=== PATIENT | female | born 1980 | race Caucasian/White ===

== ENCOUNTER → 2016-10-31 | Outpatient (CLI) | payer MEDICAID | LOC: FIMAGING 08:15 | PROVIDERS: ATTEND Surgery | DX: K44.9 Diaphragmatic hernia without obstruction or gangrene (principal); K21.9 Gastro-esophageal reflux disease without esophagitis; Z98.890 Other specified postprocedural states ==

== ENCOUNTER → 2016-12-29 | Outpatient (CLI) | payer MEDICAID | LOC: FIMAGING 08:08 | PROVIDERS: ATTEND Family Medicine | DX: R10.13 Epigastric pain (principal) ==

== ENCOUNTER 2017-01-16 18:33 | Emergency (ER) | payer MEDICAID ==
[2017-01-16 18:37] VITALS: TEMP 98.2; O2SAT 97
[2017-01-16] MEDS ORDERED: ONDANSETRON 4 MG/2 ML VIAL ONE (18:57)
[2017-01-16] MEDS ORDERED: ONDANSETRON 4 MG/2 ML VIAL IVP ONE (19:04)
[2017-01-16] MEDS ORDERED: NS 1,000 ML IV ONE ×2 (19:04→19:08)
[2017-01-16] MEDS ORDERED: ONDANSETRON 4MG PREPACK#2 BTL TAKEHOME ONE (19:11)
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
[2017-01-16 19:19] LABS: % IMMATURE GRANULYOCYTES 0.4 % (0.0-1.1); ABSOLUTE IMMATURE GRANULOCYTES 0.04 10^3/uL (0.00-0.10); ADD DIFF? NO; ADD MORPH? NO; ADD SCAN? NO; ATYPICAL LYMPHOCYTE FLAG 0 (0-99); FRAGMENT RBC FLAG 0 (0-99); HEMATOCRIT 41.5 % (38.0-47.0); HEMOGLOBIN 12.9 g/dL (12.6-16.3); LEFT SHIFT FLG 0 (0-99); LIPEMIA HEMOLYSIS FLAG 80 (0-99); MEAN CELL HEMOGLOBIN 25.7 pg (27.9-34.1); MEAN CELL HEMOGLOBIN CONCENTR. 31.1 g/dL (32.4-36.7); MEAN CELL VOLUME 82.7 fL (81.5-99.8); MEAN PLATELET VOLUME 9.3 fL (8.7-11.7); PLATELET CLUMPS FLAG 0 (0-99); PLATELET COUNT 353 10^3/uL (150-400); RED BLOOD CELL COUNT 5.02 10^6/uL (4.18-5.33); RED CELL DISTRIBUTION WIDTH 13.6 % (11.5-15.2)
[2017-01-16 19:26] LABS: ALANINE AMINOTRANSFERASE 44 IU/L (9-52); ALBUMIN 5.2 g/dL (3.5-5.0); ALKALINE PHOSPHATASE 108 IU/L (38-126); ANION GAP 16 mEq/L (8-16); ASPARTATE AMINOTRANSFERASE 32 IU/L (14-46); BILIRUBIN,TOTAL 0.7 mg/dL (0.1-1.4); BILIRUBIN-CONJUGATED 0.4 mg/dL (0.0-0.5); BILIRUBIN-UNCONJUGATED 0.3 mg/dL (0.0-1.1); CALCIUM 9.9 mg/dL (8.5-10.4); CARBON DIOXIDE 19 mEq/l (22-31); CHLORIDE 101 mEq/L (97-110); CREATININE 0.8 mg/dL (0.6-1.0); GLOMERULAR FILTRATION RATE > 60; GLUCOSE 104 mg/dL (70-100); POTASSIUM 4.1 mEq/L (3.5-5.2); SODIUM 136 mEq/L (134-144); TOTAL PROTEIN 9.1 g/dL (6.3-8.2)
[2017-01-16 20:53] VITALS: BP 111/68; PULSE 72; RESP 20
== END 2017-01-16 20:53 | disposition home or self-care (01) ==
DX: R11.2 Nausea with vomiting, unspecified (principal); E86.0 Dehydration; Z90.49 Acquired absence of other specified parts of digestive tract
CPT/HCPCS: 96374; J2405

== ENCOUNTER 2017-01-31 17:32 | Emergency (ER) | payer MEDICAID ==
[2017-01-31 17:41] VITALS: TEMP 97.7
[2017-01-31] MEDS ORDERED: PROMETHAZINE HCL 25 MG/ML INJ IVP ONE (18:02)
[2017-01-31] MEDS ORDERED: NS 1,000 ML IV ONE (18:02)
--- NOTE | 2017-01-31 18:02 | EDPHY ---
H & P Stated Complaint: N/V/D x 2 weeks, bilat lower abd pain, zofran not working Time Seen by Provider: 01/31/17 17:55 HPI/ROS: CHIEF COMPLAINT: Nausea, vomiting and diarrhea HISTORY OF PRESENT ILLNESS: The patient presents the ED with an acute exacerbation of nausea, vomiting diarrhea. The patient has a history of chronic abdominal pain since surgery for a hiatal hernia 2 years ago. She is under the care of a outbound supervisor. She has had extensive workup under their care. She reports an uneventful upper endoscopy, colonoscopy and small- bowel follow-through within the past year. The patient was seen in the emergency department several weeks ago with vomiting and dehydration. She was prescribed Zofran at that point time. She has been using Zofran sporadically at home but continues to have nausea and vomiting. She did developed 4 episodes of nonbloody diarrhea today. She denies recent antibiotic use. She denies travel outside the [place]. She complains of moderate associated epigastric pain. REVIEW OF SYSTEMS: A comprehensive 10 point review of systems is otherwise negative aside from elements mentioned in the history of present illness. Source: Patient Exam Limitations: No limitations - Personal History LMP (Females 10-55): 1-7 Days Ago Current Tetanus/Diphtheria Vaccine: Unsure Current Tetanus Diphtheria and Acellular Pertussis (TDAP): Unsure - Medical/Surgical History Hx Asthma: No Hx Chronic Respiratory Disease: No Hx Diabetes: No Hx Cardiac Disease: No Hx Renal Disease: No Hx Cirrhosis: No Hx Alcoholism: No Hx HIV/AIDS: No Hx Splenectomy or Spleen Trauma: No Other PMH: cushings,reflux, sciatica, lower back tumor resection, polycycstic ovarian syndrome - Social History Smoking Status: Never smoked - Physical Exam Exam: General Appearance: Alert, no distress Eyes: Pupils equal and round no pallor or injection ENT, Mouth: Mucous membranes moist Respiratory: There are no retractions, lungs are clear to auscultation Cardiovascular: Slight tachycardia Gastrointestinal: Minimal epigastric tenderness Neurological: A&O, normal motor function, normal sensory exam, normal cranial nerves Skin: Warm and dry, no rashes Musculoskeletal: Neck is supple nontender Extremities: symmetrical, full range of motion Psychiatric: Patient is oriented X 3, there is no agitation Constitutional: Initial Vital Signs Temperature (C) 36.5 C 01/31/17 17:37 Heart Rate 89 01/31/17 17:37 Respiratory Rate 16 01/31/17 17:37 Blood Pressure 118/83 H 01/31/17 17:37 O2 Sat (%) 98 01/31/17 17:37 O2 Delivery Mode Room Air Allergies/Adverse Reactions: No Known Allergies Allergy (Verified 01/16/17 18:34) Home Medications: Medication Instructions Recorded Diazepam [Valium 5 MG (*)] 5 mg PO 01/16/17 Naltrexone HCl/Bupropion HCl 1 each PO 01/16/17 [Contrave ER 8-90 mg Tablet] Pantoprazole Sodium [Protonix 40mg 40 mg PO 01/16/17 (*)] Venlafaxine HCl [Venlafaxine 25MG 25 mg PO 01/16/17 (*)] Vilazodone HCl [Viibryd] 10 mg PO 01/16/17 metFORMIN HCL [Glucophage 500 mg 500 mg PO 01/16/17 (*)] Medical Decision Making ED Course/Re-evaluation: The patient had an IV established. She received 2 L of normal saline. She received 12.5 mg of IV Phenergan. I reviewed the patient's past medical records including her ED visit from 2 weeks ago. The patient's laboratory studies are unremarkable. She received IV fluid rehydration. She received serial examinations in the ED by myself over a 2 hour period. The patient was reexamined at 8:00 p.m. and is feeling much better. No ongoing vomiting. At this point time I do feel the patient can be discharged home. She should follow up as scheduled with Dr. Ortiz and her outbound supervisor. Differential Diagnosis: Differential diagnosis considered includes dehydration, pancreatitis, cholecystitis, hepatitis, gastroenteritis - Data Points Laboratory Results: Laboratory Results 01/31/17 17:58 01/31/17 17:58 01/31/17 01/31/17 01/31/17 18:02 17:58 17:58 WBC RBC Hgb Hct MCV MCH MCHC RDW Plt Count MPV Neut % (Auto) Lymph % (Auto) [place] % (Auto) Eos % (Auto) Baso % (Auto) Nucleat RBC Rel Count Absolute Neuts (auto) Absolute Lymphs (auto) Absolute Monos (auto) Absolute Eos (auto) Absolute Basos (auto) Absolute Nucleated RBC Immature Gran % Immature Gran # Sodium 141 mEq/L mEq/L (134-144) Potassium 4.9 mEq/L mEq/L (3.5-5.2) Chloride 105 mEq/L mEq/L (97-110) Carbon Dioxide 20 mEq/l L mEq/l (22-31) Anion Gap 16 mEq/L mEq/L (8-16) BUN 10 mg/dL mg/dL (7-23) Creatinine 0.9 mg/dL mg/dL (0.6-1.0) Estimated GFR > 60 Glucose 80 mg/dL mg/dL (70-100) Calcium 10.1 mg/dL mg/dL (8.5-10.4) Total Bilirubin 1.5 mg/dL H mg/dL (0.1-1.4) Conjugated Bilirubin 0.6 mg/dL H mg/dL (0.0-0.5) Unconjugated Bilirubin 0.9 mg/dL mg/dL (0.0-1.1) AST 49 IU/L H IU/L (14-46) ALT 33 IU/L IU/L (9-52) Alkaline Phosphatase 93 IU/L IU/L (38-126) Total Protein 9.1 g/dL H g/dL (6.3-8.2) Albumin 5.0 g/dL g/dL (3.5-5.0) Lipase 148.0 IU/L IU/L (23-300) Beta HCG, Qual NEGATIVE Specimen Hemolysis 134 Urine Color Cancelled Urine Appearance Cancelled Urine pH Cancelled Ur Specific [place] Cancelled Urine Protein Cancelled Urine Ketones Cancelled Urine Blood Cancelled Urine Nitrate Cancelled Urine Bilirubin Cancelled Urine Urobilinogen Cancelled Ur Leukocyte Esterase Cancelled Urine Glucose Cancelled 01/31/17 17:58 WBC 9.10 10^3/uL 10^3/uL (3.80-9.50) RBC 4.86 10^6/uL 10^6/uL (4.18-5.33) Hgb 12.4 g/dL L g/dL (12.6-16.3) Hct 40.0 % % (38.0-47.0) MCV 82.3 fL fL (81.5-99.8) MCH 25.5 pg L pg (27.9-34.1) MCHC 31.0 g/dL L g/dL (32.4-36.7) RDW 14.4 % % (11.5-15.2) Plt Count 367 10^3/uL 10^3/uL (150-400) MPV 9.2 fL fL (8.7-11.7) Neut % (Auto) 73.1 % % (39.3-74.2) Lymph % (Auto) 17.0 % % (15.0-45.0) [place] % (Auto) 7.3 % % (4.5-13.0) Eos % (Auto) 1.6 % % (0.6-7.6) Baso % (Auto) 0.7 % % (0.3-1.7) Nucleat RBC Rel Count 0.0 % % (0.0-0.2) Absolute Neuts (auto) 6.65 10^3/uL H 10^3/uL (1.70-6.50) Absolute Lymphs (auto) 1.55 10^3/uL 10^3/uL (1.00-3.00) Absolute Monos (auto) 0.66 10^3/uL 10^3/uL (0.30-0.80) Absolute Eos (auto) 0.15 10^3/uL 10^3/uL (0.03-0.40) Absolute Basos (auto) 0.06 10^3/uL 10^3/uL (0.02-0.10) Absolute Nucleated RBC 0.00 10^3/uL 10^3/uL (0-0.01) Immature Gran % 0.3 % % (0.0-1.1) Immature Gran # 0.03 10^3/uL 10^3/uL (0.00-0.10) Sodium Potassium Chloride Carbon Dioxide Anion Gap BUN Creatinine Estimated GFR Glucose Calcium Total Bilirubin Conjugated Bilirubin Unconjugated Bilirubin AST ALT Alkaline Phosphatase Total Protein Albumin Lipase Beta HCG, Qual Specimen Hemolysis Urine Color Urine Appearance Urine pH Ur Specific [place] Urine Protein Urine Ketones Urine Blood Urine Nitrate Urine Bilirubin Urine Urobilinogen Ur Leukocyte Esterase Urine Glucose Medications Given: Discontinued Medications Sodium Chloride (Ns) 1,000 mls @ 0 mls/hr IV ONCE ONE; Wide Open PRN Reason: Protocol Stop: 01/31/17 18:03 Last Admin: 01/31/17 18:41 Dose: 1,000 mls Promethazine HCl (Phenergan) 12.5 mg IVP EDNOW ONE Stop: 01/31/17 18:03 Last Admin: 01/31/17 18:42 Dose: 12.5 mg Departure - Departure Disposition: Home, Routine, Self-Care Clinical Impression: Acute vomiting, Dehydration Condition: Good Instructions: Acute Nausea and Vomiting (ED) Additional Instructions: 1. Please follow up as scheduled with your primary care provider. 2. Return to the ED for severe pain, fever or other concerns. Referrals: Marquita Dallas MD [Primary Care Provider] - As per Instructions
[2017-01-31 18:06] LABS: % IMMATURE GRANULYOCYTES 0.3 % (0.0-1.1); ABSOLUTE IMMATURE GRANULOCYTES 0.03 10^3/uL (0.00-0.10); ADD DIFF? NO; ADD MORPH? NO; ADD SCAN? NO; ATYPICAL LYMPHOCYTE FLAG 10 (0-99); FRAGMENT RBC FLAG 0 (0-99); HEMOGLOBIN 12.4 g/dL (12.6-16.3); LEFT SHIFT FLG 0 (0-99); LIPEMIA HEMOLYSIS FLAG 80 (0-99); MEAN CELL HEMOGLOBIN 25.5 pg (27.9-34.1); MEAN CELL VOLUME 82.3 fL (81.5-99.8); MEAN PLATELET VOLUME 9.2 fL (8.7-11.7); PLATELET CLUMPS FLAG 10 (0-99); PLATELET COUNT 367 10^3/uL (150-400); RED BLOOD CELL COUNT 4.86 10^6/uL (4.18-5.33); RED CELL DISTRIBUTION WIDTH 14.4 % (11.5-15.2)
[2017-01-31 18:21] LABS: ALANINE AMINOTRANSFERASE 33 IU/L (9-52); ALKALINE PHOSPHATASE 93 IU/L (38-126); ANION GAP 16 mEq/L (8-16); ASPARTATE AMINOTRANSFERASE 49 IU/L (14-46); BILIRUBIN,TOTAL 1.5 mg/dL (0.1-1.4); BILIRUBIN-CONJUGATED 0.6 mg/dL (0.0-0.5); BILIRUBIN-UNCONJUGATED 0.9 mg/dL (0.0-1.1); CALCIUM 10.1 mg/dL (8.5-10.4); CARBON DIOXIDE 20 mEq/l (22-31); CHLORIDE 105 mEq/L (97-110); CREATININE 0.9 mg/dL (0.6-1.0); GLOMERULAR FILTRATION RATE > 60; GLUCOSE 80 mg/dL (70-100); POTASSIUM 4.9 mEq/L (3.5-5.2); SODIUM 141 mEq/L (134-144); SPECIMEN HEMOLYSIS 134; TOTAL PROTEIN 9.1 g/dL (6.3-8.2)
[2017-01-31 20:03] VITALS: BP 114/72; PULSE 93; RESP 18; O2SAT 94
== END 2017-01-31 20:22 | disposition home or self-care (01) ==
DX: R11.10 Vomiting, unspecified (principal); E86.0 Dehydration
CPT/HCPCS: 96374; J2550

== ENCOUNTER → 2017-02-18 | Outpatient (CLI) | payer MEDICAID ==
[~2017-02-18] MED LIST: IOPAMIDOL (ISOVUE-300) 100 ML BTL ONE
== END ==
LOC: FIMAGING 16:12
PROVIDERS: ATTEND Family Medicine
DX: R10.9 Unspecified abdominal pain (principal); R93.3 Abnormal findings on diagnostic imaging of other parts of digestive tract; K57.30 Diverticulosis of large intestine without perforation or abscess without bleeding; D25.9 Leiomyoma of uterus, unspecified; Z85.831 Personal history of malignant neoplasm of soft tissue
CPT/HCPCS: Q9967

== ENCOUNTER 2017-02-19 17:58 | Emergency (ER) | payer MEDICAID ==
--- NOTE | 2017-02-19 18:41 | EDPHY ---
H & P Stated Complaint: possible SBO, CT yesterday, sent by Dr Holley Seen by Provider: 02/19/17 18:41 HPI/ROS: CHIEF COMPLAINT: Diarrhea, abdominal pain. HISTORY OF PRESENT ILLNESS: The patient is a 36-year-old female with a history of hiatal hernia repair, cholecystectomy, and GERD who presents after an abdominal CT yesterday showed a potential partial small bowel obstruction. She has had diarrhea for the past 8 weeks and intermittent vomiting with abdominal pain. She denies bloody stool or hematemesis. No clear exacerbating or relieving factors for the abdominal pain. No fever, chills, chest pain, shortness of breath, palpitations, urinary complaints, headache, lightheadedness. REVIEW OF SYSTEMS: Aside from elements discussed in the HPI, a comprehensive 10-point review of systems was reviewed and is negative. PAST MEDICAL HISTORY: Hiatal hernia, cholecystectomy, GERD, Maya's, depression. SOCIAL HISTORY: . VITAL SIGNS: Reviewed by me GENERAL: Well-developed, well-nourished, tearful, concerned that she may need to be admitted to the hospital. HEENT: Atraumatic. Eyes: No icterus, no injection. Mouth: moist mucous membranes. No erythema or lesions. Neck: supple with no adenopathy. LUNGS: Clear to auscultation bilaterally, no wheezes, rhonchi or rales. CARDIAC: Regular rate and rhythm, no rubs, murmurs or gallops. ABDOMEN: Soft, nondistended, bowel sounds normal. Epigastric tenderness, LUQ and left mid quadrant tenderness. BACK: No CVA tenderness. EXTREMITIES: No trauma. No edema. Range of motion is normal throughout. NEURO: Alert and oriented, grossly nonfocal. SKIN: Warm and dry, no rash. PSYCHIATRIC: Normal mentation, no agitation. Portions of this note were transcribed by a medical claims manager. I personally performed a history, physical exam, medical decision making, and confirmed accuracy of information the transcribed note. Source: Patient Exam Limitations: No limitations - Personal History LMP (Females 10-55): 22-28 Days Ago Current Tetanus/Diphtheria Vaccine: Unsure Current Tetanus Diphtheria and Acellular Pertussis (TDAP): Unsure - Medical/Surgical History Hx Asthma: No Hx Chronic Respiratory Disease: No Hx Diabetes: No Hx Cardiac Disease: No Hx Renal Disease: No Hx Cirrhosis: No Hx Alcoholism: No Hx HIV/AIDS: No Hx Splenectomy or Spleen Trauma: No Other PMH: cushings,reflux, sciatica, lower back tumor resection, polycycstic ovarian syndrome, hiatal hernia w/ repair, nissin slipped, cholecystectomy - Social History Smoking Status: Never smoked Constitutional: Initial Vital Signs Temperature (C) 37 C 02/19/17 18:03 Heart Rate 74 02/19/17 18:03 Respiratory Rate 18 02/19/17 18:03 Blood Pressure 126/104 H 02/19/17 18:03 O2 Sat (%) 96 02/19/17 18:03 O2 Delivery Mode Room Air Allergies/Adverse Reactions: No Known Allergies Allergy (Verified 02/19/17 18:01) Home Medications: Medication Instructions Recorded Diazepam [Valium 5 MG (*)] 5 mg PO 01/16/17 Naltrexone HCl/Bupropion HCl 1 each PO 01/16/17 [Contrave ER 8-90 mg Tablet] Pantoprazole Sodium [Protonix 40mg 40 mg PO 01/16/17 (*)] Vilazodone HCl [Viibryd] 10 mg PO 01/16/17 metFORMIN HCL [Glucophage 500 mg 500 mg PO 01/16/17 (*)] Levsin 02/19/17 Ondansetron 02/19/17 Ranitidine HCl 300 mg PO HS #30 tablet 02/19/17 Medical Decision Making - Diagnostics Imaging: I viewed and interpreted images myself ED Course/Re-evaluation: 36-year-old female presents because her abdominal CT taken yesterday showed a potential partial small bowel obstruction. The CT was taken because she has had 8 weeks of constant diarrhea with vomiting and abdominal pain. On exam she is tender in the epigastrium and left upper/mid quadrants. An IV was established and labs ordered. Abdominal x-ray ordered. X-ray abdomen was obtained. I viewed the images myself on the PACS system. My interpretation of the images is: no acute process. The radiologist agrees; x- ray specifically demonstrates no signs of a bowel obstruction. I discussed the x-ray findings with the patient. I reviewed the patient's laboratory studies. Her blood work is positive for the H. pylori antibody. Patient informs me that she has had H pylori in the past, and that she has had testing in the past demonstrating no further active infection. It is unclear to me if this testing was antibody blood test or a breath urea test.. Her course was discussed with Dr. Cody Bright from [facility]. She has an appointment with [facility] on Thursday. He advises me to start the patient ranitidine at night. Will hold off on starting treatment for H pylori until she is evaluated by [facility]. I also advised the patient that her stool study showed no infectious cause. She may begin using Imodium for symptom control. Patient was discharged in improved condition and is relieved that she does not have a bowel obstruction. Her pain has been controlled well in the emergency department with a GI cocktail. Differential Diagnosis: After obtaining the patient's history and performing an examination, differential diagnosis considered included but was not limited to gastritis, H pylori, bowel obstruction, pancreatitis, hepatitis, gastroenteritis, inflammatory bowel disease, colitis and other causes. - Data Points Laboratory Results: Laboratory Results 02/19/17 20:10 02/19/17 20:10 Medications Given: Discontinued Medications Al Hydroxide/Mg Hydroxide (Maalox Susp) 30 ml PO ONCE ONE Stop: 02/19/17 21:09 Last Admin: 02/19/17 21:14 Dose: 30 ml Hyoscyamine Sulfate (Levsin, Hyomax-Sl) 0.25 mg PO ONCE ONE Stop: 02/19/17 21:09 Last Admin: 02/19/17 21:14 Dose: 0.25 mg Lidocaine (Lidocaine 2% Viscous) 15 ml PO ONCE ONE Stop: 02/19/17 21:09 Last Admin: 02/19/17 21:14 Dose: 15 ml Departure - Departure Disposition: Home, Routine, Self-Care Clinical Impression: Diarrhea Qualifiers: Diarrhea type: unspecified type Qualified Code(s): R19.7 - Diarrhea, unspecified Abdominal pain Qualifiers: Abdominal location: epigastric Qualified Code(s): R10.13 - Epigastric pain GERD (gastroesophageal reflux disease) Qualifiers: Esophagitis presence: esophagitis presence not specified Qualified Code(s): K21.9 - Gastro-esophageal reflux disease without esophagitis Condition: Good Instructions: Chronic Diarrhea (ED), Abdominal Pain (ED) Additional Instructions: Please take your Protonix 30 minutes to 1 hour prior to breakfast. Add ranitidine 300 mg each evening at bedtime Discontinue use of your Levsin unless you are developing significant crampy abdominal pain. Try using over the counter Imodium to treat any persisting diarrhea. Return for any serious worsening of condition. Follow up on Thursday as previously scheduled. Referrals: Marquita Dallas MD [Primary Care Provider] - As per Instructions Kobe Bright MD [Medical Doctor] - As per Instructions Prescriptions: Ranitidine HCl 300 mg PO HS #30 tablet Report Scribed for: Chloe Braun Report Scribed by: Onur Zelaya Date of Report: 02/19/17 Time of Report: 18:54
[2017-02-19 19:53] LABS: COLOR YELLOW; LEUKOCYTE ESTERASE,URINE 2+ (NEGATIVE); NITRITE,URINE NEGATIVE (NEGATIVE)
[2017-02-19 19:54] VITALS: TEMP 99
[2017-02-19 20:07] LABS: BACTERIA 1+ /hpf (NONE SEEN); MUCUS TRACE /lpf (NONE-1+)
[2017-02-19 20:19] LABS: % IMMATURE GRANULYOCYTES 0.3 % (0.0-1.1); ABSOLUTE IMMATURE GRANULOCYTES 0.02 10^3/uL (0.00-0.10); ADD DIFF? NO; ADD MORPH? NO; ADD SCAN? NO; ATYPICAL LYMPHOCYTE FLAG 10 (0-99); FRAGMENT RBC FLAG 0 (0-99); HEMATOCRIT 35.5 % (38.0-47.0); HEMOGLOBIN 11.3 g/dL (12.6-16.3); LEFT SHIFT FLG 0 (0-99); LIPEMIA HEMOLYSIS FLAG 80 (0-99); MEAN CELL HEMOGLOBIN 25.6 pg (27.9-34.1); MEAN CELL HEMOGLOBIN CONCENTR. 31.8 g/dL (32.4-36.7); MEAN CELL VOLUME 80.3 fL (81.5-99.8); MEAN PLATELET VOLUME 9.2 fL (8.7-11.7); PLATELET CLUMPS FLAG 0 (0-99); PLATELET COUNT 320 10^3/uL (150-400); RED BLOOD CELL COUNT 4.42 10^6/uL (4.18-5.33); RED CELL DISTRIBUTION WIDTH 14.3 % (11.5-15.2)
[2017-02-19 20:33] LABS: ALANINE AMINOTRANSFERASE 28 IU/L (9-52); ALBUMIN 4.6 g/dL (3.5-5.0); ALKALINE PHOSPHATASE 81 IU/L (38-126); ANION GAP 13 mEq/L (8-16); ASPARTATE AMINOTRANSFERASE 21 IU/L (14-46); BILIRUBIN,TOTAL 0.8 mg/dL (0.1-1.4); BILIRUBIN-CONJUGATED 0.3 mg/dL (0.0-0.5); BILIRUBIN-UNCONJUGATED 0.5 mg/dL (0.0-1.1); CALCIUM 9.3 mg/dL (8.5-10.4); CARBON DIOXIDE 18 mEq/l (22-31); CHLORIDE 109 mEq/L (97-110); CREATININE 0.8 mg/dL (0.6-1.0); GLOMERULAR FILTRATION RATE > 60; GLUCOSE 77 mg/dL (70-100); SODIUM 140 mEq/L (134-144); TOTAL PROTEIN 7.6 g/dL (6.3-8.2)
[2017-02-19 20:38] LABS: BHCG-QUALITATIVE NEGATIVE
[2017-02-19] MEDS ORDERED: MAG HYDROX/AL HYDROX/SIMETH 30 ML UDCUP PO ONE (21:08)
[2017-02-19] MEDS ORDERED: HYOSCYAMINE SULFATE 0.125 MG TAB PO ONE (21:08)
[2017-02-19] MEDS ORDERED: LIDOCAINE 2% VISCOUS 15 ML UDCUP PO ONE (21:08)
[2017-02-19 21:45] VITALS: BP 132/88; PULSE 83; RESP 18; O2SAT 99
== END 2017-02-19 21:39 | disposition home or self-care (01) ==
DX: R19.7 Diarrhea, unspecified (principal); K21.9 Gastro-esophageal reflux disease without esophagitis; Z90.49 Acquired absence of other specified parts of digestive tract

== ENCOUNTER → 2017-03-13 | Outpatient (CLI) | payer MEDICAID | LOC: FIMAGING 11:36 | PROVIDERS: ATTEND Obstetrics & Gynecology | DX: D25.1 Intramural leiomyoma of uterus (principal); R19.00 Intra-abdominal and pelvic swelling, mass and lump, unspecified site ==

== ENCOUNTER 2017-04-08 12:33 | Day surgery (SDC) | payer MEDICAID ==
[2017-04-08 12:56] VITALS: PULSE 84; TEMP 98.8
[2017-04-08] MEDS ORDERED: LR 1,000 ML IV ONE (13:10)
[2017-04-08] MEDS ORDERED: MIDAZOLAM 2 MG/2 ML VIAL ONE ×3 (13:54→14:35)
[2017-04-08] MEDS ORDERED: fentaNYL 100 MCG/2 ML INJ ONE ×2 (13:54→14:35)
--- NOTE | 2017-04-08 14:09 | PDPROPOC ---
Sedation Plan of Care Sedation Plan of Care: vital signs stable, mental status noted, patient educated of risks, benefits, alternatives, patient can tolerate sedation ASA Classification: ASA 1 Mallampati Score: Class 1 332 Rule: 332
--- NOTE | 2017-04-08 14:10 | PDHPUP ---
History & Physical Update H&P update statement: This history and physical update is based on an assessment of the patient which was completed after admission or registration (within 24 hours), but prior to the surgery/procedure. H&P update: H&P reviewed & patient examined, no change in patient's condition since H&P completed
[2017-04-08] MEDS ORDERED: BENZOCAINE UNIT DOSE SPRAY HURRICAINE MM ONE (14:17)
--- NOTE | 2017-04-08 14:52 | POSTOPPROG ---
Post Op Note Date of Operation: 04/08/17 Surgeon: Amador Loomis Anesthesia: IV Sedation Pre-op Diagnosis: Abdominal pain, diarrhea Post-op Diagnosis: same Indication: same Procedure: egd/cln Findings: no abnormalities Inf/Abcess present in the surg proc area at time of surgery?: No Specimen(s): antrum, duodenum, CLOtest, random colon
[2017-04-08 15:32] VITALS: BP 107/74; RESP 10; O2SAT 92
--- NOTE | 2017-04-09 00:38 | GPN ---
[f rep st] PROCEDURE NOTE PROCEDURES PERFORMED: Gastroscopy with biopsies and colonoscopy with biopsies. INDICATIONS: The patient is a 36-year-old female with chronic upper and lower abdominal pain with diarrhea. She has had minimal response to proton pump inhibitors. She is status post a Cordell fundoplication, but still has breakthrough reflux. Her diarrhea is up to 6 times a day and is culture negative. She has not seen improvement by altering her medications. Panendoscopy is being performed to evaluate for anatomical causes of her symptoms. DESCRIPTION OF PROCEDURE: After proper consent was obtained, patient placed in left lateral decubitus position, received total of 12 mg intravenous Versed and 200 mcg intravenous fentanyl. Video gastroscope was introduced through the mouth, esophagus, stomach, past the pylorus, into the duodenal. Findings: 1. Z-line is at 36, is well demarcated. 2. The patient has a good appearing spiral wrap of her Cordell with no significant hiatal hernia noted. 3. Stomach and duodenum were grossly normal. Biopsies were taken for CLOtest and of the duodenum and antrum. At this point, instrument was removed. Patient was repositioned. Video colonoscope was introduced through the anus and rectum, up the left colon, across the transverse colon, then right colon and cecum, through the ileocecal valve, and into terminal ileum. Findings as follows: 1. No evidence of any ileitis or colitis. 2. No polyps, tumors, or other lesions noted. Random biopsies of the colon were taken to rule out microscopic colitis. At this point, instrument was removed. Patient tolerated procedure well, was returned to recovery room in stable condition. RECOMMENDATIONS: I will follow up the biopsy reports and recommend accordingly. If there are no findings, I suspect is a functional bowel issue, such as irritable bowel syndrome for her lower GI symptoms and possibly issues related to spasming to explain the upper GI symptoms. /[id number]/MODL MTDD
== END 2017-04-08 15:42 | disposition home or self-care (01) ==
LOC: FSGY 12:33
PROVIDERS: ATTEND Internal Medicine Gastroenterology
DX: R10.10 Upper abdominal pain, unspecified (principal); R10.30 Lower abdominal pain, unspecified; R19.7 Diarrhea, unspecified; Z98.890 Other specified postprocedural states
CPT/HCPCS: J2250; J3010

== ENCOUNTER 2017-05-29 17:24 | Emergency (ER) | payer MEDICAID ==
[2017-05-29] MEDS ORDERED: HYDROmorphONE/DILAUDID 1 MG/ML INJ IVP ONE (18:31)
[2017-05-29] MEDS ORDERED: ONDANSETRON 4 MG/2 ML VIAL IVP ONE (18:31)
[2017-05-29] MEDS ORDERED: HYDROmorphONE/DILAUDID 1 MG/ML INJ ONE (18:33)
[2017-05-29 18:38] LABS: % IMMATURE GRANULYOCYTES 0.2 % (0.0-1.1); ABSOLUTE IMMATURE GRANULOCYTES 0.02 10^3/uL (0.00-0.10); ADD DIFF? NO; ADD MORPH? NO; ADD SCAN? NO; ATYPICAL LYMPHOCYTE FLAG 0 (0-99); FRAGMENT RBC FLAG 0 (0-99); HEMATOCRIT 38.6 % (38.0-47.0); HEMOGLOBIN 12.4 g/dL (12.6-16.3); LEFT SHIFT FLG 0 (0-99); LIPEMIA HEMOLYSIS FLAG 80 (0-99); MEAN CELL HEMOGLOBIN 25.2 pg (27.9-34.1); MEAN CELL HEMOGLOBIN CONCENTR. 32.1 g/dL (32.4-36.7); MEAN CELL VOLUME 78.5 fL (81.5-99.8); MEAN PLATELET VOLUME 8.9 fL (8.7-11.7); PLATELET CLUMPS FLAG 10 (0-99); PLATELET COUNT 327 10^3/uL (150-400); RED BLOOD CELL COUNT 4.92 10^6/uL (4.18-5.33); RED CELL DISTRIBUTION WIDTH 14.1 % (11.5-15.2)
[2017-05-29] MEDS ORDERED: NS 1,000 ML IV ONE (18:39)
--- NOTE | 2017-05-29 18:40 | EDPHY ---
H & P Stated Complaint: Left lower abdo pain since 5pm Time Seen by Provider: 05/29/17 18:20 - Personal History LMP (Females 10-55): 8-14 Days Ago Current Tetanus Diphtheria and Acellular Pertussis (TDAP): Yes - Medical/Surgical History Hx Asthma: No Hx Chronic Respiratory Disease: No Hx Diabetes: No Hx Cardiac Disease: No Hx Renal Disease: No Hx Cirrhosis: No Hx Alcoholism: No Hx HIV/AIDS: No Hx Splenectomy or Spleen Trauma: No Other PMH: cushings,reflux, sciatica, lower back tumor resection, polycycstic ovarian syndrome, hiatal hernia w/ repair, nissin slipped, cholecystectomy - Social History Smoking Status: Never smoked Constitutional: Initial Vital Signs Temperature (C) 37.3 C 05/29/17 17:25 Heart Rate 114 H 05/29/17 17:25 Respiratory Rate 18 05/29/17 17:25 Blood Pressure 133/102 H 05/29/17 17:25 O2 Sat (%) 98 05/29/17 17:25 O2 Delivery Mode Room Air Allergies/Adverse Reactions: No Known Allergies Allergy (Verified 02/19/17 18:01) Home Medications: Medication Instructions Recorded Diazepam [Valium 5 MG (*)] 5 mg PO PRN 01/16/17 Pantoprazole Sodium [Protonix 40mg 40 mg PO DAILY06 01/16/17 (*)] metFORMIN HCL [Glucophage 500 mg 500 mg PO BID 01/16/17 (*)] Ondansetron PRN 02/19/17 Herbal Drugs DAILY 04/07/17 Wellbutrin Sr 05/29/17 oxyCODONE IR [Oxycodone Ir (*)] 5 - 10 mg PO Q6 PRN #20 tab 05/29/17 Medical Decision Making - Diagnostics Imaging: Discussed imaging studies w/ lead handler Radiologist, I viewed and interpreted images myself ED Course/Re-evaluation: CHIEF COMPLAINT: Left upper abdominal pain HISTORY OF PRESENT ILLNESS: 36-year-old female who is 3-4 hours ago developed severe left upper abdominal pain. It hurts most with movements and pushing on her left upper abdomen and lower ribs. She denies any specific event. The pain started when she was at work. She has had gallbladder surgery and it feels similar to that except on the other side. She also has some sensation that her lower ribs very painful although it does not hurt when she takes a deep breath or cough it only hurts when she moves or bends or twists. It also hurts when she pushes up there. It feels best to hold that area with her hand when she lets up it hurts worse. REVIEW OF SYSTEMS: A 10 point review of systems was performed and is negative with the exception of the elements mentioned in the history of present illness. PHYSICAL EXAM: HR, BP, O2 Sat, RR. Temp noted General Appearance: Alert, well hydrated, appropriate, and non-toxic appearing. Head: Atraumatic without scalp tenderness or obvious injury Eyes: Pupils equal, round, reactive to light and accommodation, EOMI, no trauma , no injection. Ears: Clear bilaterally, no perforation, normal landmarks Nose: Atraumatic, no rhinorrhea, clear. Throat: There is no erythema or exudates, no lesions, normal tonsils, mucus membranes moist. Neck: Supple, 2+ carotid upstroke, nontender, no lymphadenopathy. Respiratory: No retractions, no distress, no wheezes, and no accessory muscle use. Lungs are clear to auscultation bilaterally. Cardiovascular: Regular rate and rhythm, no murmurs, rubs, or gallops. Bilateral carotid, radial, dorsalis pedis, and posterior tibial pulses intact. Good capillary refill all extremities. Gastrointestinal: Abdomen is soft, significant tenderness in left upper quadrant and over the left 12th rib, non-distended, no masses, no rebound, no guarding, no peritoneal signs. Musculoskeletal: Normal active ROM of all extremities, atraumatic. Neurological: Alert, appropriate, and interactive. The patient has normal DTRs and non-focal cranial nerves, motor, sensory, and cerebellar exam. Skin: No rashes, good turgor, no nodules on palpation. Past medical history: Irritable bowel syndrome with diarrhea Past surgical history: Hiatal hernia with Cordell fundoplication, cholecystectomy Family history: Noncontributory Social history: , employed, does not abuse tobacco drugs or alcohol DIAGNOSTICS/PROCEDURES/CRITICAL CARE TIME: Study: CT of the abdomen and pelvis with IV contrast Indication: left upper quadrant abdominal pain Results: CT scan of the abdomen and pelvis was obtained. The results of the study are normal. The study was read by the radiologist, . I viewed the images myself on the PACS system. DIFFERENTIAL DIAGNOSIS: The differential diagnosis for the patient's abdominal pain included but was not limited to ovarian cyst, pelvic inflammatory disease, ovarian torsion, urinary tract infection, ectopic , cholecystitis, and appendicitis. MEDICAL DECISION MAKING: This patient has significant left upper quadrant abdominal pain. It is significant to palpation. It feels like it is under her 12th rib over the spleen. I have given her 1 mg Dilaudid, 4 mg of Zofran, 2 L of fluid, and we will do CT scan and laboratory studies. UA could indicate UTI or pyelonephritis. CT is negative. Discussed work up with the patient. She will be discharged with script for OxyIR and PCP referral for follow up. Return precautions discussed. She is comfortable with this plan. - Data Points Laboratory Results: Laboratory Results 05/29/17 18:25 05/29/17 18:25 05/29/17 05/29/17 05/29/17 19:15 18:25 18:25 WBC RBC Hgb Hct MCV MCH MCHC RDW Plt Count MPV Neut % (Auto) Lymph % (Auto) [place] % (Auto) Eos % (Auto) Baso % (Auto) Nucleat RBC Rel Count Absolute Neuts (auto) Absolute Lymphs (auto) Absolute Monos (auto) Absolute Eos (auto) Absolute Basos (auto) Absolute Nucleated RBC Immature Gran % Immature Gran # Sodium 140 mEq/L mEq/L (134-144) Potassium 4.9 mEq/L mEq/L (3.5-5.2) Chloride 106 mEq/L mEq/L (97-110) Carbon Dioxide 14 mEq/l L mEq/l (22-31) Anion Gap 20 mEq/L H mEq/L (8-16) BUN 13 mg/dL mg/dL (7-23) Creatinine 0.9 mg/dL mg/dL (0.6-1.0) Estimated GFR > 60 Glucose 86 mg/dL mg/dL (70-100) Calcium 9.9 mg/dL mg/dL (8.5-10.4) Total Bilirubin 1.2 mg/dL mg/dL (0.1-1.4) Conjugated Bilirubin 0.5 mg/dL mg/dL (0.0-0.5) Unconjugated Bilirubin 0.7 mg/dL mg/dL (0.0-1.1) AST 43 IU/L IU/L (14-46) ALT 32 IU/L IU/L (9-52) Alkaline Phosphatase 94 IU/L IU/L (38-126) Total Protein 8.5 g/dL H g/dL (6.3-8.2) Albumin 4.9 g/dL g/dL (3.5-5.0) Lipase 151 IU/L IU/L (23-300) Beta HCG, Qual NEGATIVE Urine Color YELLOW Urine Appearance HAZY Urine pH 5.0 (5.0-7.5) Ur Specific [place] 1.033 H (1.002-1.030) Urine Protein NEGATIVE (NEGATIVE) Urine Ketones TRACE H (NEGATIVE) Urine Blood NEGATIVE (NEGATIVE) Urine Nitrate NEGATIVE (NEGATIVE) Urine Bilirubin NEGATIVE (NEGATIVE) Urine Urobilinogen NEGATIVE EU EU (0.2-1.0) Ur Leukocyte Esterase 2+ H (NEGATIVE) Urine RBC NONE SEEN /hpf /hpf (0-3) Urine WBC 3-5 /hpf H /hpf (0-3) Ur Epithelial Cells 1+ /lpf /lpf (NONE-1+) Urine Bacteria 1+ /hpf H /hpf (NONE SEEN) Urine Mucus TRACE /lpf /lpf (NONE-1+) Urine Glucose NEGATIVE (NEGATIVE) 05/29/17 18:25 WBC 8.08 10^3/uL 10^3/uL (3.80-9.50) RBC 4.92 10^6/uL 10^6/uL (4.18-5.33) Hgb 12.4 g/dL L g/dL (12.6-16.3) Hct 38.6 % % (38.0-47.0) MCV 78.5 fL L fL (81.5-99.8) MCH 25.2 pg L pg (27.9-34.1) MCHC 32.1 g/dL L g/dL (32.4-36.7) RDW 14.1 % % (11.5-15.2) Plt Count 327 10^3/uL 10^3/uL (150-400) MPV 8.9 fL fL (8.7-11.7) Neut % (Auto) 59.2 % % (39.3-74.2) Lymph % (Auto) 30.2 % % (15.0-45.0) [place] % (Auto) 7.7 % % (4.5-13.0) Eos % (Auto) 2.1 % % (0.6-7.6) Baso % (Auto) 0.6 % % (0.3-1.7) Nucleat RBC Rel Count 0.0 % % (0.0-0.2) Absolute Neuts (auto) 4.78 10^3/uL 10^3/uL (1.70-6.50) Absolute Lymphs (auto) 2.44 10^3/uL 10^3/uL (1.00-3.00) Absolute Monos (auto) 0.62 10^3/uL 10^3/uL (0.30-0.80) Absolute Eos (auto) 0.17 10^3/uL 10^3/uL (0.03-0.40) Absolute Basos (auto) 0.05 10^3/uL 10^3/uL (0.02-0.10) Absolute Nucleated RBC 0.00 10^3/uL 10^3/uL (0-0.01) Immature Gran % 0.2 % % (0.0-1.1) Immature Gran # 0.02 10^3/uL 10^3/uL (0.00-0.10) Sodium Potassium Chloride Carbon Dioxide Anion Gap BUN Creatinine Estimated GFR Glucose Calcium Total Bilirubin Conjugated Bilirubin Unconjugated Bilirubin AST ALT Alkaline Phosphatase Total Protein Albumin Lipase Beta HCG, Qual Urine Color Urine Appearance Urine pH Ur Specific [place] Urine Protein Urine Ketones Urine Blood Urine Nitrate Urine Bilirubin Urine Urobilinogen Ur Leukocyte Esterase Urine RBC Urine WBC Ur Epithelial Cells Urine Bacteria Urine Mucus Urine Glucose Medications Given: Discontinued Medications Hydromorphone HCl (Dilaudid) 1 mg IVP EDNOW ONE Stop: 05/29/17 18:32 Last Admin: 05/29/17 18:36 Dose: 1 mg Sodium Chloride (Ns) 1,000 mls @ 0 mls/hr IV ONCE ONE; Wide Open PRN Reason: Protocol Stop: 05/29/17 18:40 Last Admin: 05/29/17 18:39 Dose: 1,000 mls Ondansetron HCl (Zofran) 4 mg IVP EDNOW ONE Stop: 05/29/17 18:32 Last Admin: 05/29/17 18:35 Dose: 4 mg Departure - Departure Disposition: Home, Routine, Self-Care Clinical Impression: Abdominal muscle strain Qualifiers: Encounter type: initial encounter Qualified Code(s): S39.011A - Strain of muscle, fascia and tendon of abdomen, initial encounter Condition: Good Instructions: Muscle Strain (ED), Musculoskeletal Pain (ED) Additional Instructions: Take OxyIR as prescribed as needed for severe pain. Follow up with your primary care provider for unimproved symptoms over the weekend. Return to the ED for worsening of condition. Referrals: Marquita Dallas MD [Primary Care Provider] - As per Instructions Prescriptions: oxyCODONE IR [Oxycodone Ir (*)] 5 - 10 mg PO Q6 PRN #20 tab PRN Reason: Pain, Severe
[2017-05-29] MEDS ORDERED: IOPAMIDOL (ISOVUE-300) 100 ML BTL ONE (19:21)
[2017-05-29 19:22] LABS: COLOR YELLOW; LEUKOCYTE ESTERASE,URINE 2+ (NEGATIVE); NITRITE,URINE NEGATIVE (NEGATIVE)
[2017-05-29 19:26] LABS: BACTERIA 1+ /hpf (NONE SEEN); MUCUS TRACE /lpf (NONE-1+)
[2017-05-29 19:27] LABS: RBC,URINE NONE SEEN /hpf (0-3)
[2017-05-29 19:31] LABS: ALANINE AMINOTRANSFERASE 32 IU/L (9-52); ALBUMIN 4.9 g/dL (3.5-5.0); ALKALINE PHOSPHATASE 94 IU/L (38-126); ANION GAP 20 mEq/L (8-16); ASPARTATE AMINOTRANSFERASE 43 IU/L (14-46); BILIRUBIN,TOTAL 1.2 mg/dL (0.1-1.4); BILIRUBIN-CONJUGATED 0.5 mg/dL (0.0-0.5); BILIRUBIN-UNCONJUGATED 0.7 mg/dL (0.0-1.1); CALCIUM 9.9 mg/dL (8.5-10.4); CARBON DIOXIDE 14 mEq/l (22-31); CHLORIDE 106 mEq/L (97-110); CREATININE 0.9 mg/dL (0.6-1.0); GLOMERULAR FILTRATION RATE > 60; GLUCOSE 86 mg/dL (70-100); POTASSIUM 4.9 mEq/L (3.5-5.2); SODIUM 140 mEq/L (134-144); TOTAL PROTEIN 8.5 g/dL (6.3-8.2)
[2017-05-29] MEDS ORDERED: OXYCODONE/APAP 5/325MG PREPACK#4 BTL TAKEHOME ONE (20:02)
[2017-05-29 20:13] VITALS: BP 132/74; PULSE 70; RESP 16; TEMP 98.2; O2SAT 96
== END 2017-05-29 20:13 | disposition home or self-care (01) ==
DX: S39.011A Strain of muscle, fascia and tendon of abdomen, initial encounter (principal); E86.9 Volume depletion, unspecified; X58.XXXA Exposure to other specified factors, initial encounter
CPT/HCPCS: 96374; J1170; J2405; Q9967

== ENCOUNTER 2018-12-27 17:25 | Emergency (ER) | payer OTHER, MEDICAID ==
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
[2018-12-27] MEDS ORDERED: IOPAMIDOL (ISOVUE-300) 100 ML BTL ONE ×2 (18:39→19:19)
[2018-12-27 20:17] VITALS: BP 112/86
== END 2018-12-27 20:22 | disposition home or self-care (01) ==
DX: R10.84 Generalized abdominal pain (principal); M54.2 Cervicalgia; V49.49XA Driver injured in collision with other motor vehicles in traffic accident, initial encounter; Y92.410 Unspecified street and highway as the place of occurrence of the external cause
CPT/HCPCS: 82435-PO; 82565-PO; 82947-PO; 84132-PO; 84295-PO; 84520-PO; 85014-ER; Q9967

== ENCOUNTER → 2019-01-05 | Outpatient (CLI) | payer OTHER, MEDICAID | LOC: BMCIMAGING 15:55 ==